=== PATIENT | female | born 1960 | race Two or more races ===

== ENCOUNTER 2017-11-03 07:54 | Inpatient (IN) | payer OTHER ==
[~2017-11-03] VITALS: Ht 149.9 cm; Wt 81.6 kg
[~2017-11-03 07:54] MED LIST: ABILIFY5 MG PO; ATORVASTATIN CA10 MG PO; ATROVENT 00.5 MG/2.5 IH; BUPROPION XL300 MG PO; CARDIZEM CD,CA240 MG PO; DAILY MULTIPLE1 EACH PO; DALIRESP500 MCG PO; EFFEXOR XR150 MG PO; EFFEXOR XR75 MG PO; FAMOTIDINE40 MG PO; LISINOPRIL5 MG PO; MELOXICAM15 MG PO; PROAIR HFA8.5 GM IH; SINGULAIR10 MG PO; SPIRIVA RESPIMAT4 GM IH; ZYRTEC10 M2 PO
[2017-11-03 09:02] VITALS: BP 147/83
[2017-11-03 15:08] VITALS: BP 126/63
[2017-11-03 16:04] VITALS: BP 131/63
[2017-11-03 18:04] VITALS: BP 136/84
[2017-11-03 19:28] VITALS: BP 127/61
[2017-11-03 23:26] VITALS: BP 125/63
[2017-11-04 04:40] VITALS: BP 137/76
[2017-11-04 07:36] VITALS: BP 149/69
[2017-11-04 11:50] VITALS: BP 127/65
[2017-11-04 15:21] VITALS: BP 119/58
[2017-11-04 23:43] VITALS: BP 102/59
[2017-11-05 07:33] VITALS: BP 133/69
[2017-11-05 15:17] VITALS: BP 120/60
[2017-11-05 23:26] VITALS: BP 112/54
[2017-11-06 08:07] VITALS: BP 119/62
[2017-11-06 15:54] VITALS: BP 133/60
[2017-11-06 17:45] LABS: APPEARANCE CLEAR ((CLEAR)); BILIRUBIN NEGATIVE; BLOOD NEGATIVE; COLOR YELLOW ((YELLOW)); GLUCOSE (STRIP) NEGATIVE; KETONES NEGATIVE; LEUKOCYTES NEGATIVE; NITRITE NEGATIVE; PROTEIN (STRIP) NEGATIVE; SPECIFIC GRAVITY 1.004 (1.000-1.030); UROBILINOGEN 0.2 MG/DL (0.2-1.0)
[2017-11-06 20:00] VITALS: BP 145/85
[2017-11-06 23:55] VITALS: BP 137/58
[2017-11-07 08:42] VITALS: BP 118/65
== END 2017-11-07 14:36 | DRG 472 ==
LOC: SDC 07:54 → 2SOUTH 13:58 → SDC 16:41 → ENRESERV 17:40 → 3EAST 19:21
PROVIDERS: Physician Assistant Medical
DX: M50.021 Cervical disc disorder at C4-C5 level with myelopathy (principal); M47.12 Other spondylosis with myelopathy, cervical region; Z68.36 Body mass index [BMI] 36.0-36.9, adult; M48.02 Spinal stenosis, cervical region; J44.9 Chronic obstructive pulmonary disease, unspecified; E66.9 Obesity, unspecified; M25.78 Osteophyte, vertebrae; I10 Essential (primary) hypertension
CPT/HCPCS: 72020; 76000; 81003; 87641; 94640; 94640 76; 94799; 99202; C1713; G0378; J0131; J0330; J1100; J1170; J2250; J2405; J2710; J3010; J3370; J3480